=== PATIENT | male | born 1955 | race African-American/Black ===

== ENCOUNTER → 2018-10-23 09:39 | Outpatient (CLI) | payer MEDICARE, MEDICAID, SELFPAY ==
--- NOTE | 2018-10-23 | DI.CT.S_ITS ---
PROCEDURE: CT ABDOMEN WO CON INDICATIONS: PSEUDOCYST OF PANCREAS. PANCREATITIS TECHNIQUE: After the administration of oral contrast, 5 mm thick sections acquired from the diaphragms to the iliac crests. 5 mm coronal and sagittal reformats were then performed. For radiation dose reduction, the following was used: automated exposure control, adjustment of mA and/or kV according to patient size. COMPARISON: [facility], CT, ABDOMEN/PELVIS WITH CONTRAST, 08/30/2017, 14:07. FINDINGS: Image quality: Excellent. Lung bases: Lung bases are clear. Heart size is normal. Solid organs: Noncontrast evaluation of the liver demonstrate no focal hepatic lesions. The gallbladder appears within normal limits without calcified gallstones. Spleen is normal in size. No adrenal nodules. Kidneys demonstrate no hydronephrosis or nephrolithiasis. There is a small hypodensity posteriorly in the left kidney which is too small to characterize but likely represents a cyst. The pancreas is normal in morphology. There is decrease in size of the loculated thick walled cyst along the uncinate process seen on the prior study. There is a small residual ill-defined thick walled hypoattenuating lesion measuring up to approximately 0.9 cm in diameter. There is minimal residual fat stranding. Evaluation is limited in absence of intravenous contrast. No pancreatic duct dilatation. No new peripancreatic fluid collections. Peritoneum and bowel: Visualized loops demonstrate normal wall thickness and caliber. No free fluid or air. Nodes and vessels: No retroperitoneal or mesenteric adenopathy by size criteria. Aorta and inferior vena cava are normal in size. Bones: No suspicious bony lesions. No vertebral body compression fractures. Miscellaneous: No ventral hernias. IMPRESSION: 1. Decrease in size of a thick walled fluid collection seen on the prior study with a small residual collection along the inferior aspect of the uncinate process of the pancreas. There is minimal residual fat stranding. Given the history of pancreatitis as well as interval decrease in size, the findings are consistent with a pseudocyst. Dictated by: Sharad Corrigan M.D. on 10/23/2018 at 11:29 Approved by: Sharad Corrigan M.D. on 10/23/2018 at 11:41
== END ==
PROVIDERS: PCP Family Medicine; Visit Provider Internal Medicine Gastroenterology
DX: K86.3 Pseudocyst of pancreas (principal)
CPT/HCPCS: 74150